=== PATIENT | female | born 1985 | race Caucasian/White ===

== ENCOUNTER 2020-08-21 15:32 | Emergency (ER) | payer MEDICAID ==
--- NOTE | 2020-08-21 16:37 | EDM.PDOC ---
ED HPI GENERAL MEDICAL PROBLEM - General Chief Complaint: Chest Pain Stated Complaint: CHEST PAIN Time Seen by Provider: 08/21/20 16:37 - History of Present Illness INITIAL COMMENTS - FREE TEXT/NARRATIVE: 34-year-old female presents the emergency room with chest pain. This pain started roughly 3 hours ago patient was at work but was not doing much when the occurred. Patient has a very strong family history of coronary artery disease. However, the patient herself is not had any coronary artery disease she has a history of type 2 diabetes significant obesity had weight loss surgery. She does not take aspirin because of the weight loss surgery. Right now the pain is about a 2 or 3/10. There is left side of her chest. The area that hurts is tender with palpation. Patient has had problems with palpitations in the past she had a Holter monitor done 6 or 7 years ago this showed something but of late did not require treatment. She has not had recent work-up for palpitations. Patient does have frequent palpitations where her pulse rate goes up but this did not seem to be associated with the chest pain today. Patient does not smoke. Both sides of her family are plagued with premature coronary artery disease. 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: Reports: Other (See Below) Musculoskeletal History: Reports: Arthritis, Other (See Below) Other Musculoskeletal History: bone degeneration Neurological History: Reports: Migraines Psychiatric History: Reports: Anxiety, Bipolar, Depression, PTSD Endocrine/Metabolic History: Reports: Diabetes, Type II, Other (See Below) Other Endocrine/Metabolic History: hashimotos Social & Family History - Tobacco Use Tobacco Use Status *Q: Never Tobacco User - Recreational Drug Use Recreational Drug Use: No ED ROS GENERAL - Review of Systems Review Of Systems: See Below Constitutional: Reports: No Symptoms HEENT: Reports: No Symptoms Respiratory: Reports: No Symptoms Cardiovascular: Reports: Chest Pain. Denies: No Symptoms, Lightheadedness, Syncope Endocrine: Reports: No Symptoms GI/Abdominal: Reports: No Symptoms : Reports: No Symptoms Musculoskeletal: Reports: No Symptoms Skin: Reports: No Symptoms ED EXAM, GENERAL - Physical Exam Exam: See Below Exam Limited By: No Limitations General Appearance: Alert, No Apparent Distress Head: Atraumatic, Normocephalic Neck: Normal Inspection, Supple, Non-Tender. No: Lymphadenopathy (R) Respiratory/Chest: No Respiratory Distress, Lungs Clear Cardiovascular: Regular Rate, Rhythm, No Edema, No Murmur, Other (She has a palpable area of tenderness over the left fourth rib and this seems to be the pain that brought her in.) GI/Abdominal: Normal Bowel Sounds, Soft, Non-Tender, Other Extremities: Normal Inspection, No Pedal Edema Neurological: Alert, Oriented, Normal Cognition #1 Interpretation EKG Date: 08/21/20 Rhythm: NSR [place]: Normal P-Wave: Present QRS: Normal ST-T: Normal QT: Normal Comparison: NA - No Prior EKG EKG Interpretation Comments: Normal EKG Course - Vital Signs Last Recorded V/S: Last Vital Signs Temp 36.2 C 08/21/20 16:10 Pulse 67 08/21/20 16:10 Resp 15 08/21/20 16:10 BP 134/83 08/21/20 18:31 Pulse Ox 100 08/21/20 16:10 - Orders/Labs/Meds Orders: Active Orders 24 hr Category Date Time Status EKG 12 Lead [EKG Documentation Completion] [RC] ROUTINE Care 08/21/20 16:33 Active Labs: Laboratory Tests 08/21/20 08/21/20 08/21/20 Range/Units 16:50 16:50 18:45 WBC 6.62 (3.98-10.04) K/mm3 RBC 4.82 (3.98-5.22) M/mm3 Hgb 12.3 (11.2-15.7) gm/dl Hct 40.1 (34.1-44.9) % MCV 83.2 (79.4-94.8) fl MCH 25.5 L (25.6-32.2) pg MCHC 30.7 L (32.2-35.5) g/dl RDW Std Deviation 42.7 (36.4-46.3) fL Plt Count 254 (182-369) K/mm3 MPV 10.4 (9.4-12.3) fl Neut % (Auto) 54.9 (34.0-71.1) % Lymph % (Auto) 31.9 (19.3-51.7) % [place] % (Auto) 8.5 (4.7-12.5) % Eos % (Auto) 4.1 (0.7-5.8) Baso % (Auto) 0.6 (0.1-1.2) % Neut # (Auto) 3.64 (1.56-6.13) K/mm3 Lymph # (Auto) 2.11 (1.18-3.74) K/mm3 [place] # (Auto) 0.56 H (0.24-0.36) K/mm3 Eos # (Auto) 0.27 (0.04-0.36) K/mm3 Baso # (Auto) 0.04 (0.01-0.08) K/mm3 Sodium 142 (136-145) mEq/L Potassium 4.1 (3.5-5.1) mEq/L Chloride 106 (98-107) mEq/L Carbon Dioxide 26 (21-32) mEq/L Anion Gap 14.1 (5-15) BUN 15 (7-18) mg/dL Creatinine 0.8 (0.55-1.02) mg/dL Est Cr Clr Drug Dosing TNP Estimated GFR (MDRD) > 60 (>60) mL/min BUN/Creatinine Ratio 18.8 H (14-18) Glucose 100 (74-106) mg/dL Calcium 9.0 (8.5-10.1) mg/dL Magnesium 2.0 (1.8-2.4) mg/dl Total Bilirubin 0.2 (0.2-1.0) mg/dL AST 14 L (15-37) U/L ALT 23 (14-59) U/L Alkaline Phosphatase 60 (46-116) U/L Troponin I < 0.017 < 0.017 (0.00-0.056) ng/mL Total Protein 6.9 (6.4-8.2) g/dl Albumin 3.4 (3.4-5.0) g/dl Globulin 3.5 gm/dL Albumin/Globulin Ratio 1.0 (1-2) Meds: Medications Discontinued Medications Generic Name Dose Route Start Last Admin Trade Name Poli PRN Reason Stop Dose Admin Nitroglycerin 0.4 mg 08/21/20 18:21 08/21/20 18:31 Nitroglycerin 0.4 Mg Tab.Sl SL 08/21/20 18:22 0.4 mg ONETIME ONE Administration - Re-Assessments/Exams Free Text/Narrative Re-Assessment/Exam: 08/21/20 20:44 Patient has 2 - troponins her EKG looks normal chest x-ray is unrevealing other lab results normal the patient is asymptomatic at this point we will discharge home. Departure - Departure Time of Disposition: 20:44 Disposition: Home, Self-Care 01 Clinical Impression: Chest pain, Palpitations Referrals: Ana Kim [employer] [Primary Care Provider] - Forms: ED Department Discharge Additional Instructions: Return to the emergency room with any questions problems or worsening symptoms. Follow-up with your regular healthcare provider in the next week or 2 discuss having ambulatory heart monitoring done. Sepsis Event Note (ED) - Evaluation Sepsis Screening Result: No Definite Risk - Focused Exam Vital Signs: Vital Signs Temp Pulse Resp BP BP Pulse Ox 08/21/20 18:31 134/83 08/21/20 16:10 36.2 C 67 15 141/85 H 100 - My Orders Last 24 Hours: My Active Orders 08/21/20 16:33 EKG 12 Lead [EKG Documentation Completion] [RC] ROUTINE - Assessment/Plan Last 24 Hours: My Active Orders 08/21/20 16:33 EKG 12 Lead [EKG Documentation Completion] [RC] ROUTINE
--- NOTE | 2020-08-21 17:43 | CR ---
Chest: Portable view of the chest was obtained. Comparison: No prior chest imaging is available. Heart size and mediastinum are normal. Lungs are clear with no acute parenchymal change. Bony structure show no discrete abnormality. Impression: 1. Nothing acute is appreciated on portable chest x-ray. Diagnostic code #1
[2020-08-21] MEDS ORDERED: Nitroglycerin 0.4 MG Tab.SL SL ONE (18:21)
== END 2020-08-21 21:05 | disposition home or self-care (01) ==
LOC: JD.ED 15:32
DX: R07.9 Chest pain, unspecified (principal); R00.2 Palpitations; I10 Essential (primary) hypertension; E11.9 Type 2 diabetes mellitus without complications; E66.9 Obesity, unspecified
CPT/HCPCS: 36415; 71045; 80053; 83735; 84484; 85025; 93005; 99285; A9270; 99284

== ENCOUNTER 2020-12-24 11:06 | Emergency (ER) | payer MEDICAID ==
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
[2020-12-24 13:45] LABS: ACETAMINOPHEN 0 ug/mL (10-30)
== END 2020-12-24 16:10 ==
LOC: JD.ED 11:06
DX: R45.851 Suicidal ideations (principal); I10 Essential (primary) hypertension; E11.9 Type 2 diabetes mellitus without complications; Z88.0 Allergy status to penicillin; Z88.1 Allergy status to other antibiotic agents; Z88.8 Allergy status to other drugs, medicaments and biological substances; Z79.899 Other long term (current) drug therapy; Z20.822 Contact with and (suspected) exposure to COVID-19
CPT/HCPCS: 36415; 80053; 80143; 80179; 80306; 80307; 81025; 84443; 85007; 85027; 93005; 93010; 99284; 99285-25; U0002